=== PATIENT | male | born 1960 | race African-American/Black ===

== ENCOUNTER 2020-04-25 10:58 | Emergency (ER) | payer MEDICAID ==
[~2020-04-25] VITALS: Ht 180.3 cm; Wt 65.0 kg
[2020-04-25] MEDS ORDERED: ACETAMINOPHEN WITH CODEINE 300/30MG TABLET PO ONE (11:30)
[2020-04-25 12:30] VITALS: BP 125/87
== END 2020-04-25 12:37 | disposition home or self-care (01) ==
LOC: ER 11:15
DX: R21 Rash and other nonspecific skin eruption (principal); M25.562 Pain in left knee
CPT/HCPCS: 29505; 73562; 73590; 99284